=== PATIENT | male | born 1990 | race Caucasian/White ===

== ENCOUNTER 2023-02-15 07:54 | Outpatient (OUT) | payer OTHER, SELFPAY ==
--- NOTE | 2023-02-15 08:02 | US_ITS ---
The [address] [address] Patient Name: STEPHAN CADENA MRN: [id number] date: 1990 Sex: M Assigned Patient Location: US Current Patient Location: US Accession/Order Number: [id number] Exam Date: 02/15/2023 08:01 Report Date: 02/15/2023 09:07 At the request of: ARUNA MATHIS Procedure: US right upper quadrant EXAM: US right upper quadrant HISTORY: NAUSEA COMPARISON: None. TECHNIQUE: Grayscale, color and Doppler FINDINGS: The liver is normal in size, contour and echotexture with no focal mass. Normal hepatopedal flow in the main portal vein with velocity of 26 cm/s The gallbladder is normal in size. The wall measures 1.8 mm, normal. The common bile duct measures 3.3 mm, normal. Multiple layering echogenic foci with acoustic shadowing, cholelithiasis. Negative sonographic Gomes sign. The pancreas is poorly visualized due to bowel gas The right kidney is normal measuring 10.1 x 5.1 x 4.3 cm No free fluid IMPRESSION: Cholelithiasis without evidence of acute cholecystitis Electronically authenticated by: TASHI ROGERS Date: 02/15/2023 09:07
== END 2023-02-15 07:55 ==
LOC: US 07:54
PROVIDERS: PCP Family Medicine; Visit Provider Family Medicine
DX: R11.0 Nausea (principal); K80.20 Calculus of gallbladder without cholecystitis without obstruction
CPT/HCPCS: 76705

== ENCOUNTER 2025-06-03 07:57 | Outpatient (RCR) | payer OTHER, SELFPAY | END 2025-07-05 08:40 | disposition home or self-care (01) | LOC: PT 07:57 | PROVIDERS: PCP Family Medicine; Visit Provider Nurse Practitioner Family | DX: S83.91XD Sprain of unspecified site of right knee, subsequent encounter (principal) | CPT/HCPCS: 97110; 97112; 97162 ==